=== PATIENT | female | born 1995 | race Caucasian/White ===

== ENCOUNTER 2020-11-07 15:15 | Outpatient (CLI) | payer OTHER, SELFPAY ==
--- NOTE | ~2020-11-07 | US_ITS ---
US OB transvaginal 11/07/2020 15:33 Indication: Gestational dating Procedure: High-resolution Limited obstetrical ultrasound using transvaginal technique Comparison: No prior studies for comparison. Findings: Uterus measures 9.1 x 5.1 x 5.5 cm. Intrauterine gestational sac containing a pole is identified. [place]t-rump length measures 1.54 cm which corresponds to 8 weeks 0 days. No heart m otions are detected, compatible with demise. The right ovary is not visualized. Left ovary is normal measuring 2.8 x 2.8 x 1.8 cm. Impression: 1: demise corresponding to [address] Armond Gardiner discussed with Dr. Luigi Rhodes's nurse, Lulu, at 11/07/2020 15:44 OIL WELL SERVICE OPERATOR. Reviewed, dictated and finalized at location B. WELL SERVICE OPERATOR Impression: 1: demise corresponding to [address] Armond Gardiner discussed with Dr. Luigi Rhodes's nurse, Lulu, at 11/07/2020 15:44 OIL WELL SERVICE OPERATOR.
== END 2020-11-07 15:16 ==
LOC: MICIMG 15:16
PROVIDERS: Visit Provider Obstetrics & Gynecology
DX: Z36.87 Encounter for antenatal screening for uncertain dates (principal); Z3A.00 Weeks of gestation of pregnancy not specified; O02.1 Missed abortion
CPT/HCPCS: 76817

== ENCOUNTER 2022-07-31 16:20 | Outpatient (CLI) | payer SELFPAY ==
[2022-07-31 16:44] LABS: Basophils Percent Auto 0.3 % (0.2-1.2); Eosinophils Absolute Auto 0.1 K/mm3 (0-0.3); Eosinophils Percent Auto 0.5 % (0-4.4); Hematocrit 33.9 % (37.0-47.0); Hemoglobin 11.5 g/dL (12.0-15.0); Immature Granulocyte Absolute 0.07 K/mm3 (0.00-0.031); Immature Granulocyte Percent A 0.6 % (0-0.5); Lymphocytes Absolute Auto 1.35 K/mm3 (0.9-3.2); Lymphocytes Percent Auto 12.2 % (18.3-44.2); Mean Corpuscular HGB Conc 33.9 g/dl (32-36); Mean Corpuscular Hemoglobin 27.2 pg (26-34); Mean Corpuscular Volume 80.1 fl (80-100); Mean Platelet Volume 9.5 fl (7.4-10.4); Monocytes Absolute Auto 0.6 K/mm3 (0.1-0.6); Monocytes Percent Auto 5.1 % (2.6-8.5); Neutrophils Percent Auto 81.3 % (45.5-73.1); Platelet Count Result 198 k/mm3 (150-375); Red Blood Count 4.23 M/mm3 (4.2-5.4); Red Cell Distribution Width 13.7 % (11.5-14.5); White Blood Count 11.1 K/mm3 (4.5-10.0)
[2022-07-31 17:24] LABS: Hepatitis B Surface Antigen Negative (Negative); Rubella IgG Antibody 9.3 IU/ML
[2022-07-31 17:31] LABS: HIV 1/2 Ab P24 Ag Result Negative (Negative)
[2022-08-02 06:49] LABS: Rapid Plasma Reagin Non-Reactive (NonReactive)
== END 2022-07-31 16:21 | disposition home or self-care (01) ==
PROVIDERS: Visit Provider Obstetrics & Gynecology
DX: N94.89 Other specified conditions associated with female genital organs and menstrual cycle (principal)
CPT/HCPCS: 36415; 84702; 85025; 86592; 86644; 86703; 86747; 86762; 86787; 86850; 86900; 86901; 87086; 87340; G0432

== ENCOUNTER 2022-11-05 13:18 | Outpatient (RCR) | payer SELFPAY ==
[2022-11-05 15:25] LABS: Hematocrit 35.8 % (37.0-47.0); Hemoglobin 11.6 g/dL (12.0-15.0); Mean Corpuscular HGB Conc 32.4 g/dl (32-36); Mean Corpuscular Volume 80.1 fl (80-100); Platelet Count Result 234 k/mm3 (150-375); Red Blood Count 4.47 M/mm3 (4.2-5.4)
[2022-11-05 15:37] LABS: Glucose 1 Hour PP 50gm Dose 106 mg/dL
[2022-11-05 16:18] LABS: HIV 1/2 Ab P24 Ag Result Negative (Negative)
[2022-11-06] MEDS: RHO(D) IMMUNE GLOBULIN 300 MCG/2 ML SYRINGE IM (13:36)
== END 2023-02-03 23:59 | disposition home or self-care (01) ==
LOC: ANHLAB 13:18
PROVIDERS: Visit Provider Student in an Organized Health Care Education/Training Program
DX: Z11.4 Encounter for screening for human immunodeficiency virus [HIV] (principal); Z29.13 Encounter for prophylactic Rho(D) immune globulin; O36.0190 Maternal care for anti-D [Rh] antibodies, unspecified trimester, not applicable or unspecified; Z3A.00 Weeks of gestation of pregnancy not specified
CPT/HCPCS: 36415; 82947; 85027; 85461; 86703; 86850; 86900; 86901; 90384; 96372; G0432; J2790

== ENCOUNTER 2022-12-01 16:57 | Observation (INO) | payer OTHER, SELFPAY ==
[2022-12-01] VITALS (52 sets, daily range): BP systolic 76–112; BP diastolic 36–79; PULSE 62–123; TEMP 37.1; O2SAT 80–100; BMI 31.8
--- NOTE | ~2022-12-01 | US_ITS ---
EXAMINATION: US OB BPP wo non-stress DATE: 12/01/2022 19:29 INDICATION: Variables during third trimester TECHNIQUE: Real-time pelvic ultrasound was performed. The interpreting radiologist was not present fo r the study. COMPARISON: None. FINDINGS: There is a single living fetus in vertex presentation. The placenta is posterior. heart rate is 163 beats per minute (bpm). Biophysical profile performed by the technologist: breathing (30 sec sustained breathing in 30 minutes): 2 out of 2 movement (3 gross body movements in 30 minutes): 2 out of 2 tone (one episode of txrpkpp-pomnleifb-vzmwlfq limb movement): 2 out of 2 Amniotic fluid pocket (2 cm): 2 out of 2 Total score: 8 out of 8 IMPRESSION: 1. Single living fetus in vertex presentation. 2. Biophysical profile 8 out of 8. Reviewed, dictated and finalized at location F. NSED DISPENSING OPTICIAN
--- NOTE | ~2022-12-01 | US_ITS ---
EXAMINATION: US OB limited DATE: 12/01/2022 19:27 INDICATION: Amniotic fluid index assessment and variables during third trimester TECHNIQUE: Real-time ultrasound of the pelvis was performed. The interpreting radiologist was not pre sent for the study. COMPARISON: None. FINDINGS: There is a single living fetus in vertex presentation. The placenta is posterior. The cervi kit length is 4.3 cm. cardiac activity and movement are noted. heart rate is 163 be ats per minute (bpm). The amniotic fluid index is 21.9 cm which is normal (normal range: 7.7 cm to 24 .9 cm). IMPRESSION: 1. Single living fetus in vertex presentation. 2. Normal amniotic fluid index. Reviewed, dictated and finalized at location F. ATE EQUITY ASSOCIATE
[2022-12-01] MEDS: NIFEdipine 10 MG CAPSULE 20 MG PO (17:53)
--- NOTE | 2022-12-01 17:56 | OBADM ---
This patient, Jennifer Saini, admitted to the OB room OB Post 117 for observation. Patient/family oriented to hospital policies and general routines including ID bracelet, bed and alarms, visiting hours, pain management, procedures, bathroom and other care routines, personal items, smoking policy, room service/diet, and visiting hours. Patient/Family are encouraged to report perceived risks to care and to ask questions if they do not understand what they are told or what they should do.
[2022-12-01 17:57] LABS: Appearance Urine Clear (Clear); Bilirubin Urine Negative (Negative); Blood Urine Negative (Negative); Color Urine Yellow (Yellow); Glucose Urine UA Negative (Negative); Ketones Urine Trace mg/dL (Negative); Leukocyte Esterase Ur Negative LEU/UL (Negative); Nitrate Urine Negative (Negative); Protein Urine Negative (Negative); Specific Grav Ur >= 1.030 (1.001-1.035); Urobilinogen Urine 0.2 mg/dL (<2.0)
[2022-12-01 18:01] LABS: Mucus Urine Rare /lpf; Squamous Epithelial Cell Urine Many /hpf (Few); WBC Urine 0-3 /hpf
[2022-12-01 18:02] LABS: Add Urine Microscopic? YES
[2022-12-01 19:07] LABS: Fetal Fibronectin Negative
[2022-12-01] MEDS: NIFEdipine 10 MG CAPSULE PO (23:36)
[2022-12-01] MEDS: CYCLOBENZAPRINE HCL 10 MG TABLET PO (23:36)
[2022-12-02 04:27] VITALS: BP 111/65; PULSE 112
--- NOTE | 2022-12-02 08:37 | PC.NURSE ---
0815--Pt. awake, states that she is feeling 100% better this morning , denies any ctxns, states she feels movementand would like to go home. DC orders received from Dr. Souza with orders to continue procardia PRN at home.
--- NOTE | 2022-12-04 08:11 | PM.OBTRLD ---
OB - Triage/Final Diagnosis Visit Information Date of evaluation: 12/02/22 Reason for evaluation: threatened labor Comments/Additional reasons for admission: I have assessed the risk for this patient, Jennifer Saini, and determined that she would benefit from observation care. Evaluation Laboratory results: Laboratory Tests 12/01/22 12/01/22 17:26 17:50 Urine Color Yellow Urine Appearance Clear Urine pH 6.0 Ur Specific [place] >= 1.030 Urine Protein Negative Urine Glucose (UA) Negative Urine Ketones Trace Ur Blood (Man) Negative Urine Nitrate Negative Urine Bilirubin Negative Urine Urobilinogen 0.2 Leukocyte Esterase Rfl Negative Urine RBC 3-5 H Urine WBC 0-3 Ur Squamous Epith Cells Many H Urine Mucus Rare Fibronectin Negative
== END 2022-12-02 08:35 | disposition home or self-care (01) ==
PROVIDERS: Admitting Provider Student in an Organized Health Care Education/Training Program; Visit Provider Student in an Organized Health Care Education/Training Program
DX: O47.03 False labor before 37 completed weeks of gestation, third trimester (principal); Z3A.32 32 weeks gestation of pregnancy
CPT/HCPCS: 76815; 76819; 81001; 82731; 84112; A9270; G0378

== ENCOUNTER 2023-01-17 06:04 | Inpatient (IN) | payer OTHER, SELFPAY ==
[2023-01-17] VITALS (104 sets, daily range): BP systolic 64–135; BP diastolic 14–112; PULSE 36–268; RESP 16–18; TEMP 36.4–37.2; O2SAT 90–100; BMI 33.1
[2023-01-17 06:52] LABS: Basophils Percent Auto 0.3 % (0.2-1.2); Eosinophils Absolute Auto 0.1 K/mm3 (0-0.3); Eosinophils Percent Auto 0.4 % (0-4.4); Hematocrit 32.8 % (37.0-47.0); Hemoglobin 10.3 g/dL (12.0-15.0); Immature Granulocyte Absolute 0.16 K/mm3 (0.00-0.031); Lymphocytes Percent Auto 12.1 % (18.3-44.2); Mean Corpuscular HGB Conc 31.4 g/dl (32-36); Mean Corpuscular Hemoglobin 23.8 pg (26-34); Mean Corpuscular Volume 75.9 fl (80-100); Monocytes Absolute Auto 1.1 K/mm3 (0.1-0.6); Monocytes Percent Auto 7.3 % (2.6-8.5); Neutrophils Absolute Auto 12.4 K/mm3 (1.3-6.7); Neutrophils Percent Auto 78.9 % (45.5-73.1); Platelet Count Result 184 k/mm3 (150-375); Red Blood Count 4.32 M/mm3 (4.2-5.4); White Blood Count 15.7 K/mm3 (4.5-10.0)
--- NOTE | 2023-01-17 07:15 | WPDHPUPDATE1 ---
History and Physical Update Update Date/Time: 01/17/23 07:15 History and Physical has been reviewed, including an updated exam of the patient. There are NO changes in the patient's condition. Risks, benefits, and alternatives have been discussed and questions answered. Patient agrees to proceed with procedure.
--- NOTE | 2023-01-17 07:16 | WPDOBADMIT ---
Obstetrics - Admit Note Admission Note: record reviewed. No pertinent additions to the history and/or any subsequent changes in the physical findings that are not consistent with the expected course of the were found. Additions to the history and/or subsequent changes in the physical findings follow. None.
--- NOTE | 2023-01-17 07:16 | LDADM ---
This patient, Jennifer Saini, was admitted to Labor/Delivery/Recovery 103 on 01/17/23 at 06:04. Plans for labor, pain management and were discussed with patient. Patient/family oriented to hospital policies and general routines including ID bracelet, bed and alarms, visiting hours, pain management, procedures, bathroom and other care routines, personal items, smoking policy, room service/diet and guest tray routines, infant security routines, and visiting hours. Patient/Family are encouraged to report perceived risks to care and to ask questions if they do not understand what they are told or what they should do. See OBIX for further documentation.
[2023-01-17] MEDS: LACTATED RINGERS 1,000 ML 125 ML IV CONT ×2 (07:20→11:30)
[2023-01-17] MEDS: OXYTOCIN 30 UNITS/NS 500 ML 30 UNITS/500 ML BAG IV CONT (07:20)
--- NOTE | 2023-01-17 11:18 | WPDANESEPPF ---
Anes - Initial Pre Proc Eval Procedure: Labor Epidural Date/Time: 01/17/23 11:18 Surgeon: Zackery Campoverde MD Pre Op Diagnosis: Pain during labor Pre Op Diagnosis: IOL Patient Data Age: 27 Gender: F Height: 1.52 m Weight: 77 kg Last Vital Signs Temp 36.4 C 01/17/23 09:53 Pulse 77 01/17/23 10:45 BP 98/70 L 01/17/23 10:45 O2 Del Method Room Air 01/17/23 07:15 Allergies Allergy/AdvReac Type Severity Reaction Status Date / Time No Known Allergies Allergy Verified 01/14/23 09:20 Home Medications Medication Instructions Recorded Confirmed Type vitamins-iron fumarate 65 1 tablet PO DAILY 07/31/22 01/17/23 History mg iron-folic acid 1 mg tablet nifedipine 10 mg capsule 10 mg PO Q6HR PRN Cramping #40 caps 12/02/22 01/17/23 Rx Laboratory Tests 01/17/23 01/17/23 01/17/23 06:38 06:38 06:38 WBC 15.7 K/mm3 H K/mm3 (4.5-10.0) RBC 4.32 M/mm3 M/mm3 (4.2-5.4) Hgb 10.3 g/dL L g/dL (12.0-15.0) Hct 32.8 % L % (37.0-47.0) MCV 75.9 fl L fl (80-100) MCH 23.8 pg L pg (26-34) MCHC 31.4 g/dl L g/dl (32-36) RDW 15.0 % H % (11.5-14.5) Plt Count 184 k/mm3 k/mm3 (150-375) MPV 11.0 fl H fl (7.4-10.4) Immature Gran % (Auto) 1.0 % H % (0-0.5) Neut % (Auto) 78.9 % H % (45.5-73.1) Lymph % (Auto) 12.1 % L % (18.3-44.2) [place] % (Auto) 7.3 % % (2.6-8.5) Eos % (Auto) 0.4 % % (0-4.4) Baso % (Auto) 0.3 % % (0.2-1.2) Lymph # (Auto) 1.90 K/mm3 K/mm3 (0.9-3.2) [place] # (Auto) 1.1 K/mm3 H K/mm3 (0.1-0.6) Eos # (Auto) 0.1 K/mm3 K/mm3 (0-0.3) Baso # (Auto) 0.0 K/mm3 K/mm3 (0.0-0.1) Abs Immat Gran (auto) 0.16 K/mm3 H K/mm3 (0.00-0.031) Absolute Neuts (auto) 12.4 K/mm3 H K/mm3 (1.3-6.7) Absolute Nucleated RBC 0.0 K/mm3 K/mm3 (0.0-0.012) Nucleated RBC % 0.0 % % (0.0-0.2) RPR Pending Blood Type AB Negative Antibody Screen Negative Patient hx anesthesia problems: none Family hx anesthesia problems: none Results Review: All pre-operative results and documents have been reviewed as part of the pre-operative evaluation. [facility] Past Medical History Medical History Anxiety demise due to miscarriage (~11/07/20) 8 weeks Heart palpitations with 1st Suppression of menstruation Family History Family History Father Hypertension Grandparent Breast cancer paternal grandmother Other Cirrhosis of liver without mention of alcohol paternal aunt Social History Social History Smoking status: Never smoker Alcohol intake: never Substance use: never Substance use type: does not use Lack of Transportation: No Lack of Food: Never True Current Housing: I Have Housing Concerned About Future Housing: No Difficulty Paying Gas/Electric Bills: No Difficulty Paying for Meds: No Currently Unemployed: No Education: High School Diploma/GED Difficulty w/ Childcare or Family Care: No Living arrangements: other Additional living arrangements comments: Occupation/Education: occupation Additional occupation/education comments: supervisor hard [employer] Gender identity (if verbalized by the patient): Female Sexual Orientation (if Verbalized by the Patient): Straight or Heterosexual Spiritual care concerns: No Anes - Eval Final PreProcedure Day of Procedure 01/17/23 11:18 Heart: regular rate and rhythm Airway: Mallampati scale class II Neurological: alert and oriented Last oral intake: >/= 8 hours ASA classification: II Anesthetic plan: proceed Anesthesia type and monit
[2023-01-17 12:12] LABS: Rapid Plasma Reagin Non-Reactive (NonReactive)
--- NOTE | 2023-01-17 16:12 | P.PCNOB_ITS ---
OB - Delivery Note Procedure Induction method: Per Pitocin Protocol Delivery augmentation: Rupture of Membranes Delivery monitor: Internal FHT and Internal Uterine Route of delivery: Episiotomy description: None Laceration Description: None Specimen: No Quantitative Blood Loss (ml): 200 Anesthesia type: Epidural Disposition: Floor Complications: None Narrative: Patient prepped and draped usual manner for this procedure. Maternal expulsive readily delivered vertex the rest of baby followed without difficulty. Cord was clamped and cut and placenta delivered spontaneously. Uterus was well contracted minimal bleeding. Cervix vagina vulva were inspected with no lacerations or tears. At this point the procedure was considered terminated with immediate postoperative condition of mother and baby both exc ellent. [place] Baby Weeks of gestation at delivery: 39 Infant gender: Male Weight (pounds): 8 Weight (ounces): 3 presentation: vertex Placenta delivery description: Spontaneous Cord Vessel Description: 3 Vessels score one minute: 6 score five minutes: 9 AMG Delivery Billing Delivery Delivery: Delivery Charge
[2023-01-17] MEDS: OXYTOCIN 30 UNITS/NS 500 ML 30 UNITS/500 ML BAG 125 UNITS IV CONT (16:16)
[2023-01-17] MEDS: BENZOCAINE 20% AER SPR (*SP) 56 GM CAN 1 SPRAY TOPICAL (18:50)
[2023-01-17] MEDS: WITCH HAZEL 40 PADS 1 PAD TOPICAL (18:50)
[2023-01-17] MEDS: ACETAMINOPHEN 325 MG TABLET 650 MG PO (18:51)
--- NOTE | 2023-01-17 19:08 | PC.NURSE ---
Patient transferred to post room #286 via (W/C). Support person present. Oriented to unit, room, information board, rooming in, admission packet and security measures. Patient verbalizes understanding.
[2023-01-18] MEDS: IBUPROFEN 600 MG TABLET PO ×3 (02:02→15:22)
[2023-01-18 05:38] VITALS: BP 110/47; PULSE 66; RESP 16; TEMP 36.4; O2SAT 98
[2023-01-18 07:53] LABS: Hematocrit 28.2 % (37.0-47.0)
[2023-01-18 08:00] VITALS: BP 98/49; PULSE 67; RESP 16; TEMP 37.1; O2SAT 99
--- NOTE | 2023-01-18 08:01 | PM.OBDSVD ---
DS: Admitting Diagnosis Discharge Date 01/18/2023 Admitting Diagnosis DS: Discharge Diagnosis Discharge Diagnosis (1) , delivered: Code(s): O80 - Encounter for full-term uncomplicated delivery Status: Acute OB - DS: Summary OB Procedures : None OB Procedures Intrapartum: Episiotomy OB Procedures: : None Time Spent with Patient Time attestation: Total time spent providing and/or coordinating discharge services: DS: Data Data Completed and Pending Labs on day of discharge: Labs from last 24 hours 01/18/23 01/17/23 07:36 06:38 Hgb 9.0 L Hct 28.2 L RPR Non-reactive Discharge Plan Discharge Discharging Clinician: Zackery Campoverde Patient Disposition: Home, Self-Care Activity: as tolerated Diet: as tolerated Patient Instructions: Antibiotic Form Stand Alone Forms: General Discharge Information Follow-up/Referrals: Zackery Campoverde MD [Physician] - 3 Weeks Discharge Medications: New ibuprofen 600 mg Tablet 600 mg PO Q6H PRN (Reason: Cramping) Qty: 30 0RF Continued vit-iron fum-folic ac 65 mg iron- 1 mg tablet 1 tablet PO DAILY Discontinued nifedipine 10 mg Capsule 10 mg PO Q6HR PRN (Reason: Cramping) Qty: 40 0RF Rx Instructions: Take as needed for contractions if having 6 contractions or more per hour. Date of admission: 01/17/23 06:04 Primary Care Provider: PHYSICIAN,GROUNDS MAINTENANCE SUPERVISOR Admitting Provider: Zackery Campoverde Attending physician on admission: Zackery Campoverde Condition: Stable
[2023-01-18] MEDS: MULTIVIT/MIN/PREN/FOL AC/IRON TABLET 1 TAB PO (09:11)
[2023-01-18] MEDS: DOCUSATE SODIUM 100 MG CAPSULE PO (09:11)
[2023-01-18] MEDS: POLYSACCHARIDE IRON COMPLEX 150 MG CAPSULE PO (09:12)
--- NOTE | 2023-01-18 09:34 | PC.NURSE ---
[id number] Introductions were made and Mother verbalizes she is able to independently latch with appropriate positioning/alignment. She denies any nipple discomfort and is responsively . Mother has a successful history of 1 year and state she is aware that at times her infant doesn't open as wide as he needs to. was circumcised this morning and mother recalls her first son being tired afterward. Discussion was held related to stimulating with touch, changing positions, hand expressed colostrum, burping through a sleepy phase. Infant is currently meeting outcomes for weight, output, jaundice and feeding frequencies of 8-12 times in 24 hours. Mother is receptive to the conversation, is confident, and declines any additional assistance/education at this time. Mother is encouraged to call for assistance if her doesn?t latch or there is discomfort with latching. Mother voiced understanding of information shared and the mom reminded of the mom/baby guide for an additional resource.
--- NOTE | 2023-01-18 10:10 | WPDANLDPN2 ---
Anes-Prog Note L&D Date/Time: 01/18/23 10:10 Comfortable throughout: labor and delivery Neuraxial method: epidural Epidural/Spinal procedure site: clean & non-tender Neuro status: Neuro function grossly intact. Cardiovascular status: normal Respiratory status: normal Airway patency: baseline Mental status: baseline Post-Op hydration status: normal Vital Signs: Last Vital Signs Temp 36.4 C 01/18/23 05:38 Pulse 66 01/18/23 05:38 Resp 16 01/18/23 05:38 BP 110/47 L 01/18/23 05:38 Pulse Ox 98 01/18/23 05:38 O2 Del Method Room Air 01/17/23 21:04 Pain score (VAS): 10 I/O: Intake & Output 01/17/23 01/18/23 01/18/23 23:59 07:59 15:59 Intake Total 500 Output Total 200 Balance 300 Post-procedural complaints: none Patient feedback: Patient satisfied with anesthetic care.
[2023-01-18] MEDS: MEASLES,MUMPS,RUBELLA VACCINE 0.5 ML VIAL SUB-Q (11:05)
[2023-01-18] MEDS: TETANUS,DIPHTHERIA,AC PERTUSSIS ADULT (0.5 ML) BOOSTRIX IM (11:08)
[2023-01-18] MEDS: RHO(D) IMMUNE GLOBULIN 300 MCG/2 ML SYRINGE IM (11:18)
[2023-01-18 12:00] VITALS: BP 106/59; PULSE 77; RESP 18; TEMP 36.8; O2SAT 100
--- NOTE | 2023-01-18 17:34 | PC.NURSE ---
Patient viewed the discharge video Mother & Baby Care, The First Two Weeks . Patient was given the opportunity and encouraged to ask questions. Patient verbalized understanding of information shared and has been given the mother/baby guide for home reference.
[2023-01-19 09:38] VITALS: BP 127/71; PULSE 96; RESP 16; TEMP 36.6; O2SAT 99
== END 2023-01-18 19:16 | disposition home or self-care (01) | DRG 807 ==
LOC: ANHLDR 06:08 → ANHOB2 19:21
PROVIDERS: Admitting Provider Obstetrics & Gynecology; Visit Provider Obstetrics & Gynecology
DX: O80 Encounter for full-term uncomplicated delivery (principal); Z37.0 Single live birth; Z3A.39 39 weeks gestation of pregnancy
CPT/HCPCS: 36415; 85014; 85018; 85025; 85461; 86592; 86850; 86900; 86901; 90384; 90710; 90715; A9270; J2590; J2790; J2795; J7120